=== PATIENT | male | born 1960 | race Caucasian/White ===

== ENCOUNTER → 2022-03-31 | Day surgery (SDC) | payer BC ==
[2022-03-29 12:20] VITALS: BMI 42.0
[~2022-03-31] MED LIST: Dexamethasone 20 MG/5 ML VIAL ONE; Dexmedetomidine 200 MCG/2 ML VIAL ONE; Fentanyl 100 MCG/2 ML VIAL ONE; Glycopyrrolate 0.2 MG/ML 5 ML SYRINGE ONE; Heparin 10,000 UNITS/ 10 ML VIAL ONE; Heparin 25,000 units/D5W 500 ML ONE; Lidocaine 1% PF 5 ML VIAL ONE; Neostigmine Methylsulfate 3 MG/3 ML SYRINGE ONE; Ondansetron HCl/PF 4 MG/2 ML Vial IVP PRN; Ondansetron PF 4 MG/2 ML Vial ONE; PROPOFOL 200 MG/20 ML VIAL ONE; Phenylephrine 10 MG/ML VIAL ONE; Promethazine HCl 25 MG/ML VIAL IM PRN; Promethazine HCl 25 MG/ML VIAL IVPB PRN; Protamine Sulfate 50 MG/5 ML VIAL ONE; Rocuronium Bromide 10 MG/ML (10ML VIAL) ONE; fentaNYL Citrate/PF 100 MCG/2 ML SYRINGE ONE
== END ==
LOC: SDC 05:55
PROVIDERS: ATTEND Internal Medicine Cardiovascular Disease
PROC: 4A023FZ Measurement of Cardiac Rhythm, Percutaneous Approach (ICD-10-PCS; principal; 2022-03-31)
PROC: 02583ZZ Destruction of Conduction Mechanism, Percutaneous Approach (ICD-10-PCS; principal; 2022-03-31)
PROC: 4A0234Z Measurement of Cardiac Electrical Activity, Percutaneous Approach (ICD-10-PCS; principal; 2022-03-31)
DX: I48.0 Paroxysmal atrial fibrillation (principal); I48.4 Atypical atrial flutter; I10 Essential (primary) hypertension; I25.2 Old myocardial infarction; G47.33 Obstructive sleep apnea (adult) (pediatric); E11.9 Type 2 diabetes mellitus without complications; E78.5 Hyperlipidemia, unspecified; Z79.01 Long term (current) use of anticoagulants; Z79.82 Long term (current) use of aspirin; Z79.84 Long term (current) use of oral hypoglycemic drugs; Z79.899 Other long term (current) drug therapy; Z88.0 Allergy status to penicillin
CPT/HCPCS: 85347; 93005; 93312; 93462; 93621; 93653; 93662; C1730; C1732; C1759; C1760; C1769; C1884; C1894; C2630; J1100; J1644; J2370; J2405; J2704; J2720; J3010

== ENCOUNTER 2025-06-10 08:00 | Outpatient (CLI) | payer BC, SELFPAY | END 2025-06-10 13:09 | disposition home or self-care (01) | LOC: CT 08:00 | PROVIDERS: ATTEND Orthopaedic Surgery | DX: Z01.818 Encounter for other preprocedural examination (principal); M17.12 Unilateral primary osteoarthritis, left knee; M25.462 Effusion, left knee; I73.9 Peripheral vascular disease, unspecified ==

== ENCOUNTER 2025-06-10 13:10 | Outpatient (CLI) | payer BC ==
[2025-06-10 15:02] LABS: #Basophils Less than 0.03 10x3/uL (0.0-0.2); #Eosinophils 0.38 10x3/uL (0.0-0.7); #Monocytes 0.86 10x3/uL (0.11-0.59); #Neutrophils 5.71 10x3/uL (1.40-6.50); %Basophils 0.2 % (0.0-1.0); %Eosinophils 4.3 % (0.0-10.0); %Lymphocytes 21.4 % (21.0-51.0); %Monocytes 9.7 % (0.0-10.0); %Neutrophils 64.1 % (42.0-75.0); Hematocrit 41.7 % (42.0-52.0); Hemoglobin 13.5 g/dL (14.0-18.0); Mean Corpuscular Hemoglobin 27.2 pg (27.0-31.0); Mean Corpuscular Volume 83.9 fL (78.0-98.0); Platelet Count 185 10x3/uL (130-400); Red Blood Cell (RBC) Count 4.97 mill/uL (4.70-6.10); White Blood Cell (WBC) Count 8.91 10x3/uL (4.8-10.8)
[2025-06-10 15:17] LABS: Anion Gap 15 mmol/L (10-20); BUN (Urea Nitrogen) 20 mg/dL (8.4-25.7); Calc. Creatinine Clearance 0 mL/min (70-130); Calcium 9.3 mg/dL (7.8-10.44); Carbon Dioxide 22 mmol/L (23-31); Chloride 109 mmol/L (98-107); Glucose 89 mg/dL (80-115); Potassium 4.2 mmol/L (3.5-5.1); Sodium 142 mmol/L (136-145)
[2025-06-10 15:24] LABS: INR-International Normal Ratio 1.5; Prothrombin Time 17.9 sec (12.0-14.7)
== END 2025-06-10 13:11 | disposition home or self-care (01) ==
LOC: LABBT 13:10
PROVIDERS: ATTEND Orthopaedic Surgery
DX: Z01.818 Encounter for other preprocedural examination (principal); M17.12 Unilateral primary osteoarthritis, left knee
CPT/HCPCS: 80048; 85025; 85610; 87081; 93005; 93010

== ENCOUNTER 2025-06-17 11:31 | Observation (INO) | payer BC ==
[2025-06-10 13:30] VITALS: BMI 33.5
[2025-06-17] MEDS ORDERED: Ropivacaine 0.5% HCl/PF (150 MG/30 ML VIAL) ONE (12:42)
[2025-06-17] MEDS ORDERED: Tranexamic Acid 1,000 MG/10 ML VIAL ONE (12:45)
[2025-06-17] MEDS ORDERED: Vancomycin HCl 1.5 GM VIAL ONE (12:46)
[2025-06-17] MEDS ORDERED: CEFAZOLIN 2 GM VIAL ONE (12:46)
[2025-06-17] MEDS ORDERED: Ondansetron PF 4 MG/2 ML Vial IVP PRN ×2 (13:30→18:35)
[2025-06-17] MEDS ORDERED: HYDROcodone/Acetaminophen 10/325 mg Tablet PO PRN (13:30)
[2025-06-17] MEDS ORDERED: Ropivacaine 0.2% 550 ML 550 ML NERVE BLCK SCH (13:30)
[2025-06-17] MEDS ORDERED: Bupivacaine 0.25% HCL 30 ML VIAL ONE (14:31)
[2025-06-17] MEDS ORDERED: PROPOFOL 200 MG/20 ML VIAL ONE (15:00)
[2025-06-17] MEDS ORDERED: fentaNYL PF 100 MCG/2 ML SYRINGE ONE (15:10)
[2025-06-17] MEDS ORDERED: Ondansetron PF 4 MG/2 ML Vial ONE (16:15)
[2025-06-17] MEDS ORDERED: HYDROmorphone 0.5 MG/0.5 ML SYRINGE ONE (17:28)
[2025-06-17] MEDS ORDERED: Acetaminophen 325 MG TAB PO PRN (18:35)
[2025-06-17] MEDS ORDERED: diphenhydrAMINE 25 MG CAP PO PRN (18:35)
[2025-06-17] MEDS: HYDROcodone/Acetaminophen 10/325 mg Tablet PO PRN (18:55)
[2025-06-17] MEDS ORDERED: Dextrose 50% Abboject 50 ML SYRINGE SLOW IVP PRN (20:06)
[2025-06-17] MEDS ORDERED: Glucagon 1 MG/ML KIT IM PRN (20:06)
[2025-06-17] MEDS: Senokot S 8.6-50 MG TAB PO SCH (21:34)
[2025-06-17] MEDS: Ferrous Gluconate 324 MG TAB PO SCH (21:35)
[2025-06-17] MEDS: metFORMIN 500 MG TAB PO SCH (21:36)
[2025-06-17] MEDS: Carvedilol 25 MG TAB PO SCH (21:38)
[2025-06-18 05:25] LABS: Hematocrit 39.8 % (42.0-52.0); Hemoglobin 12.8 g/dL (14.0-18.0); Mean Corpuscular Hemoglobin 26.9 pg (27.0-31.0); Mean Corpuscular Volume 83.8 fL (78.0-98.0); Platelet Count 167 10x3/uL (130-400); Red Blood Cell (RBC) Count 4.75 mill/uL (4.70-6.10); White Blood Cell (WBC) Count 11.96 10x3/uL (4.8-10.8)
[2025-06-18 05:39] LABS: Anion Gap 16 mmol/L (10-20); BUN (Urea Nitrogen) 19 mg/dL (8.4-25.7); Calc. Creatinine Clearance 100 mL/min (70-130); Calcium 8.9 mg/dL (7.8-10.44); Carbon Dioxide 22 mmol/L (23-31); Chloride 105 mmol/L (98-107); Glucose 140 mg/dL (80-115); Magnesium 1.5 mg/dL (1.6-2.6); Potassium 4.3 mmol/L (3.5-5.1); Sodium 139 mmol/L (136-145)
[2025-06-18] MEDS: Multivitamin W/ Minerals 1 TAB PO SCH (08:18)
[2025-06-18] MEDS: Valsartan 80 MG TAB PO SCH (08:19)
[2025-06-18] MEDS: Aspirin 81 mg Enteric Coated Tablet PO SCH (08:19)
[2025-06-18] MEDS: metFORMIN 500 MG TAB PO SCH (08:19)
[2025-06-18] MEDS: DULoxetine 30 MG CAP PO SCH (08:20)
[2025-06-18] MEDS ORDERED: Non-Formulary Item 1 EACH (Multivitamin [Multivitamin] 1 EACH Tablet) PO SCH (09:00)
[2025-06-18 13:10] VITALS: BP 162/63; TEMP 97.6
[2025-06-18] MEDS ORDERED: Apixaban 5 MG TAB PO SCH (21:00)
[2025-06-20] MEDS ORDERED: FLU (Fluarix Triv) 25-26 (6MOS UP)/PF 45 MCG/0.5 ML Syringe IM ONE (09:00)
== END 2025-06-18 14:10 | disposition home or self-care (01) ==
LOC: SDC 11:31 → SURG B 14:44
PROVIDERS: ADMIT Orthopaedic Surgery; ATTEND Orthopaedic Surgery
PROC: 0SRD0JZ Replacement of Left Knee Joint with Synthetic Substitute, Open Approach (ICD-10-PCS; principal; 2025-06-17)
PROC: 3E0T3BZ Introduction of Anesthetic Agent into Peripheral Nerves and Plexi, Percutaneous Approach (ICD-10-PCS; 2025-06-17)
DX: M17.12 Unilateral primary osteoarthritis, left knee (principal); I10 Essential (primary) hypertension; E11.9 Type 2 diabetes mellitus without complications; Z88.0 Allergy status to penicillin; I48.0 Paroxysmal atrial fibrillation; I25.10 Atherosclerotic heart disease of native coronary artery without angina pectoris; E78.5 Hyperlipidemia, unspecified; G47.30 Sleep apnea, unspecified; Z98.41 Cataract extraction status, right eye; Z98.42 Cataract extraction status, left eye; Z98.890 Other specified postprocedural states
CPT/HCPCS: 36415; 36416; 80048; 83735; 85027; A4306; C1713; C1776; C1889; J0169; J0665; J1171; J2250; J2405; J2704; J2795; J3010; J7030